=== PATIENT | female | born 1930 | race Caucasian/White ===

== ENCOUNTER → 2018-06-21 | Outpatient (REF) | payer MEDICARE ==
[~2018-06-21] MED LIST: AMLODIPINE5 MG PO; BABY ASPIRIN81 MG PO; CIPROFLOXACIN250 MG PO; CLONIDINE0.1 MG PO; CRESTOR5 MG PO; FLONASE NASAL50 MCG; FLUARIX QUADRIV1 IN1 IM; FLUARIX QUADRIV1 IN2 IM; FLUARIX QUADRIV1 INJ IM; FLULAVAL IM; LEVOTHYROXIN50 MCG PO; LEVOTHYROXIN75 MC1 OR; LEVOTHYROXIN75 MC1 PO; LIPITOR10 MG PO; LIPITOR20 MG PO; NEXIUM40 M1 PO; PROVENTIL0.083 % IN; SYNTHROID75 MCG PO; VENTOLIN HFA IN; ZYRTEC10 MG PO; catapres PO
[2018-06-21 08:16] LABS: HEMATOCRIT 40.9 % (37.0-47.0); HEMOGLOBIN 13.4 g/dl (12.0-16.0); IMMATURE GRANULOCYTES 0.2 % (0.0-5.0); MEAN CELL VOLUME 87.4 fL CALC (80.0-100.0); MEAN CORPUSCULAR HGB 28.6 pG CALC (26.0-32.0); MEAN CORPUSCULAR HGB CONC 32.8 g/L CALC (32.0-36.0); NEUT# 1.6 thou/uL (2.00-7.15); RED BLOOD COUNT 4.68 mill/uL (4.20-5.60); RED CELL DISTRI WIDTH 13.8 % (11.5-15.5)
[2018-06-21 09:08] LABS: ALBUMIN 4.5 g/dL (3.2-5.0); ALKALINE PHOSPHATASE 101 u/l (38-126); ANION GAP 14 (6-22 (CALC)); BILIRUBIN, TOTAL 0.7 mg/dL (0.0-1.4); BUN 13 mg/dL (8-23); BUN/CREATININE RATIO 14 (12-20 (CALC)); CALCULATED LDLCHOLESTEROL 167 mg/dL (62-129 (CALC)); CARBON DIOXIDE 28 mmol/l (22-30); CHLORIDE 103 mmol/l (95-108); CREATININE 0.9 mg/dL (0.5-1.0); GFR 59 ML/MIN (>=60 (CALC)); GFR FOR AFR.AMER. > 60 ML/MIN (>=60 (CALC)); HDL CHOLESTEROL 98 mg/dL (>=40); POTASSIUM 4.5 mmol/l (3.5-5.1); SGOT/AST 35 u/l (9-36); SODIUM 141 mmol/l (137-146); TOTAL CHOLESTEROL 290 mg/dl (0-199); TOTAL PROTEIN 7.9 g/dL (6.3-8.2); TOTAL TRIGLYCERIDES 127 mg/dl (30-149); VLDL CHOLESTROL 25 mg/dl (0-48 (CALC))
== END | disposition home or self-care (01) ==
LOC: LAB 07:33
PROVIDERS: ATTEND Nurse Practitioner Family
DX: E03.9 Hypothyroidism, unspecified (principal); I10 Essential (primary) hypertension

== ENCOUNTER 2019-03-29 09:12 | Observation (INO) | payer MEDICARE ==
[~2019-03-29] VITALS: Ht 167.6 cm; Wt 62.1 kg
[2019-03-29] MEDS ORDERED: MECLIZINE25 MG PO (09:42)
[2019-03-29] MEDS ORDERED: XANAX0.25 MG PO (09:43)
[2019-03-29 09:51] LABS: HEMATOCRIT 40.2 % (37.0-47.0); HEMOGLOBIN 13.1 g/dl (12.0-16.0); MEAN CELL VOLUME 85.2 fL CALC (80.0-100.0); MEAN CORPUSCULAR HGB 27.8 pG CALC (26.0-32.0); MEAN CORPUSCULAR HGB CONC 32.6 g/L CALC (32.0-36.0); NEUT# 2.24 thou/uL (2.00-7.15); RED BLOOD COUNT 4.72 mill/uL (4.20-5.60)
[2019-03-29 10:04] LABS: ALBUMIN 4.7 g/dL (3.2-5.0); ALKALINE PHOSPHATASE 94 u/l (38-126); ANION GAP 13 (6-22 (CALC)); BILIRUBIN, TOTAL 0.5 mg/dL (0.0-1.4); BUN 10 mg/dL (8-23); BUN/CREATININE RATIO 13 (12-20 (CALC)); CARBON DIOXIDE 27 mmol/l (22-30); CHLORIDE 101 mmol/l (95-108); CREATININE 0.8 mg/dL (0.5-1.0); GFR > 60 ML/MIN (>=60 (CALC)); GFR FOR AFR.AMER. > 60 ML/MIN (>=60 (CALC)); POTASSIUM 4.1 mmol/l (3.5-5.1); SGOT/AST 39 u/l (9-36); SODIUM 137 mmol/l (137-146); TOTAL PROTEIN 8.8 g/dL (6.3-8.2)
[2019-03-29 10:22] LABS: URINE BILIRUBIN - DIPSTICK NEGATIVE (NEGATIVE); URINE BLOOD DIPSTICK NEGATIVE (NEGATIVE); URINE COLOR YELLOW; URINE GLUCOSE - DIPSTICK NEGATIVE (NEGATIVE); URINE KETONE NEGATIVE (NEGATIVE); URINE LEUK ESTERASE TRACE (NEGATIVE); URINE NITRITE - DIPSTICK NEGATIVE (Negative); URINE PH 7.5 (4.5-8.0); URINE PROTEIN - DIPSTICK NEGATIVE (NEG-TRACE); URINE UROBILINOGEN - DIPSTICK 0.2 E.U./dL (0.2)
[2019-03-29 12:05] VITALS: BP 135/65
[2019-03-29] MEDS ORDERED: AMLODIPINE BESYL5 MG PO (15:08)
[2019-03-29 16:33] VITALS: BP 121/63
[2019-03-29 19:18] VITALS: BP 111/59
[2019-03-30 00:38] VITALS: BP 122/61
[2019-03-30 04:22] VITALS: BP 106/68
[2019-03-30 05:38] LABS: CHOLESTEROL HDL RATIO 3.5 (<4.4 (CALC))
[2019-03-30 07:38] VITALS: BP 145/71
[2019-03-30 08:06] VITALS: BP 174/66
[2019-03-30 10:34] VITALS: BP 118/66
== END 2019-03-30 12:48 | disposition home or self-care (01) ==
LOC: ED 09:12 → ED-I 10:45 → ED 10:48 → MS2 10:49
PROVIDERS: Emergency Medicine; Nurse Practitioner Family; ADMIT Internal Medicine; ATTEND Internal Medicine
DX: R07.2 Precordial pain (principal); I16.0 Hypertensive urgency; I10 Essential (primary) hypertension; I25.10 Atherosclerotic heart disease of native coronary artery without angina pectoris; E03.9 Hypothyroidism, unspecified; F41.9 Anxiety disorder, unspecified; Z95.5 Presence of coronary angioplasty implant and graft
CPT/HCPCS: G0378

== ENCOUNTER 2020-02-17 08:15 | Emergency (ER) | payer MEDICARE ==
[~2020-02-17] VITALS: Ht 167.6 cm; Wt 72.0 kg
[~2020-02-17 08:15] MED LIST changes: +AMLODIPINE BESYL5 MG PO; +MECLIZINE25 MG PO; +XANAX0.25 MG PO
[2020-02-17 09:26] LABS: HEMATOCRIT 40.1 % (37.0-47.0); HEMOGLOBIN 12.9 g/dl (12.0-16.0); IMMATURE GRANULOCYTES 0.1 % (0.0-5.0); MEAN CELL VOLUME 85.9 fL CALC (80.0-100.0); MEAN CORPUSCULAR HGB 27.6 pG CALC (26.0-32.0); MEAN CORPUSCULAR HGB CONC 32.2 g/dL CAL (32.0-36.0); RED BLOOD COUNT 4.67 mill/uL (4.20-5.60); RED CELL DISTRI WIDTH 13.3 % (11.5-15.5); URINE BILIRUBIN - DIPSTICK NEGATIVE (NEGATIVE); URINE BLOOD DIPSTICK TRACE-INTACT (NEGATIVE); URINE COLOR YELLOW; URINE GLUCOSE - DIPSTICK NEGATIVE (NEGATIVE); URINE KETONE NEGATIVE (NEGATIVE); URINE LEUK ESTERASE TRACE (NEGATIVE); URINE NITRITE - DIPSTICK NEGATIVE (Negative); URINE PH 8.5 (4.5-8.0); URINE PROTEIN - DIPSTICK NEGATIVE (NEG-TRACE); URINE SPECIFIC GRAVITY 1.015; URINE UROBILINOGEN - DIPSTICK 0.2 E.U./dL (0.2)
[2020-02-17 09:51] LABS: ALBUMIN 4.6 g/dL (3.2-5.0); ALKALINE PHOSPHATASE 111 u/l (38-126); AMYLASE 82 u/l (30-110); ANION GAP 13 (6-22 (CALC)); BUN 13 mg/dL (8-23); BUN/CREATININE RATIO 15 (12-20 (CALC)); CARBON DIOXIDE 25 mmol/l (22-30); CHLORIDE 103 mmol/l (95-108); CREATININE 0.9 mg/dL (0.5-1.0); GFR 59 ML/MIN (>=60 (CALC)); GFR FOR AFR.AMER. > 60 ML/MIN (>=60 (CALC)); LIPASE 108 u/l (23-300); POTASSIUM 4.3 mmol/l (3.5-5.1); SGOT/AST 37 u/l (9-36); SODIUM 137 mmol/l (137-146); TOTAL PROTEIN 8.6 g/dL (6.3-8.2)
[2020-02-17 09:53] LABS: BILIRUBIN, TOTAL 0.8 mg/dL (0.0-1.4)
[2020-02-17] MEDS ORDERED: PRILOSEC20 MG/CAP PO (10:10)
[2020-02-17] MEDS ORDERED: CIPROFLOXACN500 MG PO (11:38)
[2020-02-17] MEDS ORDERED: METRONIDAZOL500 MG PO (11:38)
[2020-02-17] MEDS ORDERED: ULTRAM50 MG PO (11:38)
[2020-02-17 12:11] VITALS: BP 176/78
== END 2020-02-17 12:11 | disposition home or self-care (01) ==
LOC: ED 08:15
DX: K57.32 Diverticulitis of large intestine without perforation or abscess without bleeding (principal); I10 Essential (primary) hypertension; F41.9 Anxiety disorder, unspecified; Z87.11 Personal history of peptic ulcer disease
CPT/HCPCS: Q9967; S0164

== ENCOUNTER 2020-09-10 08:12 | Emergency (ER) | payer MEDICARE ==
[~2020-09-10] VITALS: Ht 167.6 cm; Wt 68.0 kg
[~2020-09-10 08:12] MED LIST changes: +CIPROFLOXACN500 MG PO; +METRONIDAZOL500 MG PO; +PRILOSEC20 MG/CAP PO; +ULTRAM50 MG PO
[2020-09-10 09:01] LABS: HEMATOCRIT 39.6 % (37.0-47.0); HEMOGLOBIN 12.9 g/dl (12.0-16.0); IMMATURE GRANULOCYTES 0.4 % (0.0-5.0); MEAN CELL VOLUME 85.3 fL CALC (80.0-100.0); MEAN CORPUSCULAR HGB 27.8 pG CALC (26.0-32.0); MEAN CORPUSCULAR HGB CONC 32.6 g/dL CAL (32.0-36.0); NEUT# 1.59 thou/uL (2.00-7.15); RED BLOOD COUNT 4.64 mill/uL (4.20-5.60); RED CELL DISTRI WIDTH 13.9 % (11.5-15.5)
[2020-09-10 09:17] LABS: ALBUMIN 4.5 g/dL (3.2-5.0); ALKALINE PHOSPHATASE 73 u/l (38-126); AMYLASE 58 u/l (30-110); ANION GAP 13 (6-22 (CALC)); BILIRUBIN, TOTAL 0.7 mg/dL (0.0-1.4); BUN 13 mg/dL (8-23); BUN/CREATININE RATIO 13 (12-20 (CALC)); CARBON DIOXIDE 25 mmol/l (22-30); CHLORIDE 100 mmol/l (95-108); GFR 52 ML/MIN (>=60 (CALC)); GFR FOR AFR.AMER. > 60 ML/MIN (>=60 (CALC)); LIPASE 179 u/l (23-300); POTASSIUM 4.2 mmol/l (3.5-5.1); SGOT/AST 39 u/l (9-36); SODIUM 134 mmol/l (137-146); TOTAL PROTEIN 8.2 g/dL (6.3-8.2)
[2020-09-10 09:28] LABS: MYOGLOBIN 36 ng/mL (0 - 62)
[2020-09-10] MEDS ORDERED: GAS-1 PO (12:07)
[2020-09-10] MEDS ORDERED: PREVACID30 M3 PO (12:07)
[2020-09-10 12:45] LABS: URINE BILIRUBIN - DIPSTICK NEGATIVE (NEGATIVE); URINE BLOOD DIPSTICK NEGATIVE (NEGATIVE); URINE COLOR YELLOW; URINE GLUCOSE - DIPSTICK NEGATIVE (NEGATIVE); URINE KETONE NEGATIVE (NEGATIVE); URINE PROTEIN - DIPSTICK NEGATIVE (NEG-TRACE); URINE UROBILINOGEN - DIPSTICK 0.2 E.U./dL (0.2)
[2020-09-10 12:47] LABS: URINE LEUK ESTERASE MODERATE (NEGATIVE); URINE NITRITE - DIPSTICK NEGATIVE (Negative)
[2020-09-10 12:48] LABS: URINE BACTERIA FEW hpf; URINE EPITHELIAL CELLS FEW EPI/hpf (0-FEW)
[2020-09-10 13:02] VITALS: BP 110/65
[2020-09-11] MEDS ORDERED: CIPROFLOXACN500 MG PO (00:31)
== END 2020-09-10 13:02 | disposition home or self-care (01) ==
LOC: ED 08:12
PROVIDERS: Emergency Medicine
DX: K59.00 Constipation, unspecified (principal); N39.0 Urinary tract infection, site not specified; I10 Essential (primary) hypertension; F41.9 Anxiety disorder, unspecified; Z87.11 Personal history of peptic ulcer disease; Z20.822 Contact with and (suspected) exposure to COVID-19
CPT/HCPCS: Q9967

== ENCOUNTER 2021-03-02 10:21 | Observation (INO) | payer MEDICARE ==
[~2021-03-02] VITALS: Ht 167.6 cm; Wt 56.2 kg
[2021-03-02] VITALS (7 sets, daily range): BP systolic 99–155; BP diastolic 49–86
[~2021-03-02 10:21] MED LIST changes: +GAS-1 PO; +PREVACID30 M3 PO
[2021-03-02 11:05] LABS: HEMATOCRIT 43.7 % (37.0-47.0); HEMOGLOBIN 14.6 g/dl (12.0-16.0); MEAN CELL VOLUME 84.9 fL CALC (80.0-100.0); MEAN CORPUSCULAR HGB 28.3 pG CALC (26.0-32.0); MEAN CORPUSCULAR HGB CONC 33.4 g/dL CAL (32.0-36.0); RED BLOOD COUNT 5.15 mill/uL (4.20-5.60); RED CELL DISTRI WIDTH 13.6 % (11.5-15.5)
[2021-03-02 11:21] LABS: ALBUMIN 4.8 g/dL (3.2-5.0); ALKALINE PHOSPHATASE 99 u/l (38-126); ANION GAP 15 (6-22 (CALC)); BILIRUBIN, TOTAL 0.7 mg/dL (0.0-1.4); BUN 14 mg/dL (8-23); BUN/CREATININE RATIO 15 (12-20 (CALC)); CARBON DIOXIDE 26 mmol/l (22-30); CHLORIDE 101 mmol/l (95-108); CREATININE 0.9 mg/dL (0.5-1.0); GFR 59 ML/MIN (>=60 (CALC)); GFR FOR AFR.AMER. > 60 ML/MIN (>=60 (CALC)); POTASSIUM 4.4 mmol/l (3.5-5.1); SGOT/AST 42 u/l (9-36); SODIUM 137 mmol/l (137-146); TOTAL PROTEIN 8.5 g/dL (6.3-8.2)
[2021-03-02 12:40] LABS: TSH, 3RD GENERATION 0.72 uIU/mL (0.47 - 4.68)
[2021-03-03] VITALS (13 sets, daily range): BP systolic 96–153; BP diastolic 51–78
[2021-03-03 05:32] LABS: HEMATOCRIT 39.9 % (37.0-47.0); HEMOGLOBIN 13.2 g/dl (12.0-16.0); MEAN CELL VOLUME 85.4 fL CALC (80.0-100.0); MEAN CORPUSCULAR HGB 28.3 pG CALC (26.0-32.0); MEAN CORPUSCULAR HGB CONC 33.1 g/dL CAL (32.0-36.0); RED BLOOD COUNT 4.67 mill/uL (4.20-5.60); RED CELL DISTRI WIDTH 13.5 % (11.5-15.5)
[2021-03-03 05:45] LABS: ANION GAP 11 (6-22 (CALC)); BUN 15 mg/dL (8-23); BUN/CREATININE RATIO 19 (12-20 (CALC)); CARBON DIOXIDE 24 mmol/l (22-30); CHLORIDE 106 mmol/l (95-108); CREATININE 0.7 mg/dL (0.5-1.0); GFR > 60 ML/MIN (>=60 (CALC)); GFR FOR AFR.AMER. > 60 ML/MIN (>=60 (CALC)); POTASSIUM 4.2 mmol/l (3.5-5.1); SODIUM 137 mmol/l (137-146)
[2021-03-03] MEDS ORDERED: XARELTO20 MG PO (11:27)
[2021-03-03] MEDS ORDERED: TOPROL XL25 MG PO (11:28)
== END 2021-03-03 13:00 | disposition home or self-care (01) ==
LOC: ED 10:21 → ED-I 11:52 → ED 11:52 → ED-I 11:54 → ICU 12:03 → ED 12:03 → ICU 12:03
PROVIDERS: Family Medicine; ADMIT Hospitalist; ATTEND Hospitalist
DX: I48.91 Unspecified atrial fibrillation (principal); I10 Essential (primary) hypertension; I25.10 Atherosclerotic heart disease of native coronary artery without angina pectoris; E03.9 Hypothyroidism, unspecified; F41.9 Anxiety disorder, unspecified; Z87.11 Personal history of peptic ulcer disease; Z95.5 Presence of coronary angioplasty implant and graft; Z20.822 Contact with and (suspected) exposure to COVID-19
CPT/HCPCS: J1650

== ENCOUNTER 2021-11-18 08:59 | Inpatient (IN) | payer MEDICARE ==
[~2021-11-18] VITALS: Ht 167.6 cm; Wt 56.0 kg
[2021-11-18] VITALS (9 sets, daily range): BP systolic 152–181; BP diastolic 64–87
[~2021-11-18 08:59] MED LIST changes: +TOPROL XL25 MG PO; +XARELTO20 MG PO
--- NOTE | 2021-11-18 09:18 | NUR ---
PATIENT AMBULATED TO ROOM WITH STEADY GAIT IN NAD. PROVIDER NOTIFIED OF PATIENT STATUS.
[2021-11-18 09:57] LABS: HEMATOCRIT 39.7 % (37.0-47.0); HEMOGLOBIN 12.4 g/dl (12.0-16.0); IMMATURE GRANULOCYTES 0.6 % (0.0-5.0); MEAN CELL VOLUME 81.4 fL CALC (80.0-100.0); MEAN CORPUSCULAR HGB 25.4 pG CALC (26.0-32.0); MEAN CORPUSCULAR HGB CONC 31.2 g/dL CAL (32.0-36.0); NEUT# 5.82 thou/uL (2.00-7.15); RED BLOOD COUNT 4.88 mill/uL (4.20-5.60); RED CELL DISTRI WIDTH 16.4 % (11.5-15.5)
[2021-11-18 10:00] LABS: URINE BLOOD DIPSTICK TRACE-INTACT (NEGATIVE); URINE COLOR YELLOW; URINE GLUCOSE - DIPSTICK NEGATIVE (NEGATIVE); URINE KETONE NEGATIVE (NEGATIVE); URINE LEUK ESTERASE NEGATIVE (NEGATIVE); URINE PH 7.5 (4.5-8.0); URINE PROTEIN - DIPSTICK TRACE mg/dL (NEG-TRACE); URINE SPECIFIC GRAVITY 1.015; URINE UROBILINOGEN - DIPSTICK 0.2 E.U./dL (0.2)
[2021-11-18 10:01] LABS: URINE BILIRUBIN - DIPSTICK SMALL (NEGATIVE)
[2021-11-18 10:02] LABS: URINE NITRITE - DIPSTICK NEGATIVE (Negative)
--- NOTE | 2021-11-18 10:09 | NUR ---
Reassessment of patient completed. No distress noted.
[2021-11-18 10:23] LABS: ALBUMIN 4.3 g/dL (3.2-5.0); ALKALINE PHOSPHATASE 94 u/l (38-126); ANION GAP 10 (6-22 (CALC)); BUN 14 mg/dL (8-23); BUN/CREATININE RATIO 14 (12-20 (CALC)); CARBON DIOXIDE 25 mmol/l (22-30); CHLORIDE 102 mmol/l (95-108); GFR FOR AFR.AMER. > 60 ML/MIN (>=60 (CALC)); GFR OTHER RACES 52 ML/MIN (>=60 (CALC)); POTASSIUM 4.2 mmol/l (3.5-5.1); SGOT/AST 37 u/l (9-36); SODIUM 133 mmol/l (137-146)
[2021-11-18 10:25] LABS: BILIRUBIN, TOTAL 0.7 mg/dL (0.0-1.4)
--- NOTE | 2021-11-18 11:05 | NUR ---
LYING IN BED RESTING QUIETLY. DENIES PAIN OR DISCOMFORT. NO NAUSEA, VOMITING, OR DIARRHEA NOTED. Reassessment of patient completed. No distress noted.
--- NOTE | 2021-11-18 12:00 | NUR ---
Reassessment of patient completed. No distress noted. DENIES PAIN OR DISCOMFORT. NO NAUSEA, VOMITING, OR DIARRHEA NOTED. CALL LIGHT IN REACH. WILL CONTINUE WITH PLAN OF CARE.
--- NOTE | 2021-11-18 13:00 | NUR ---
LYING IN BED RESTING QUIETLY. RESPIRATIONS EVEN AND UNLABORED. NO ACUTE DISTRESS NOTED. DENIES NAUSEA, VOMITING, OR DIARRHEA. PATINET TO BE ADMITTED TO HOSPITAL. SHE IS AWARE AND AGREEANLE WITH PLAN OF CARE.Reassessment of patient completed. No distress noted.
[2021-11-18] MEDS ORDERED: ASPIRIN81 MG PO (13:55)
[2021-11-18] MEDS ORDERED: NORVASC5 M1 PO (13:55)
--- NOTE | 2021-11-18 14:39 | NUR ---
Reassessment of patient completed. No distress noted.
--- NOTE | 2021-11-18 14:40 | NUR ---
Reassessment of patient completed. No distress noted.
--- NOTE | 2021-11-18 15:20 | NUR ---
Reassessment of patient completed. No distress noted.
--- NOTE | 2021-11-18 15:38 | NUR ---
PT ARRIVED TO FLOOR VIA WHEELCHAIR ACCOMPAINED BY FAMILY MEMBER. NO APPARENT DISTRESS NOTED. PT AMBULATORY WITH STEADY GAIT FROM WHEELCHAIR TO BED. VSS. PT ORIENTED TO ROOM AND CALL LIGHT SYSTEM. DISCUSSED POC AND SAFETY PRECAUTIONS. CALL LIGHT WITHIN REACH. WILL CONTINUE TO MONITOR.
[2021-11-18] MEDS ORDERED: ELIQUIS5 MG PO (15:40)
[2021-11-18] MEDS ORDERED: LEVOTHYROXIN75 MCG PO (15:41)
--- NOTE | 2021-11-18 20:00 | NUR ---
PT IN BED AWAKE NO DISTRESS NOTED, BED IN LOW POSITION, CALL LIGHT IN REACH
[2021-11-19] VITALS (9 sets, daily range): BP systolic 121–158; BP diastolic 47–67
[2021-11-19 05:01] LABS: MEAN CELL VOLUME 82.6 fL CALC (80.0-100.0); MEAN CORPUSCULAR HGB 25.9 pG CALC (26.0-32.0); MEAN CORPUSCULAR HGB CONC 31.3 g/dL CAL (32.0-36.0); RED BLOOD COUNT 4.02 mill/uL (4.20-5.60); RED CELL DISTRI WIDTH 16.5 % (11.5-15.5)
--- NOTE | 2021-11-19 05:07 | NUR ---
PT IN BED ASLEEP, NO DISTRESS NOTED NO OVERNIGHT EVENTS, BED IN LOW POSITION, CALL LIGHT IN REACH
[2021-11-19 05:12] LABS: HEMATOCRIT 33.2 % (37.0-47.0); HEMOGLOBIN 10.4 g/dl (12.0-16.0)
[2021-11-19 05:16] LABS: ANION GAP 7 (6-22 (CALC)); BUN 8 mg/dL (8-23); BUN/CREATININE RATIO 10 (12-20 (CALC)); CARBON DIOXIDE 26 mmol/l (22-30); CHLORIDE 106 mmol/l (95-108); CREATININE 0.8 mg/dL (0.5-1.0); GFR FOR AFR.AMER. > 60 ML/MIN (>=60 (CALC)); GFR OTHER RACES > 60 ML/MIN (>=60 (CALC)); POTASSIUM 3.5 mmol/l (3.5-5.1); SODIUM 136 mmol/l (137-146)
--- NOTE | 2021-11-19 07:00 | NUR ---
report received from journeyman pipefitterweight shifter pt resting in bed. ivf infusing per emar. breathing even and unlabored. no distress noted. fall/saftey precaution in place. call light within reach.
--- NOTE | 2021-11-19 08:38 | NUR ---
PT RESTING ON SIDE OF THE BED UPON ENTERING ROOM. STATES NO NV/PAIN. IV 20G RFA INFUSING IVF PER EMAR. FLUSHED. ASSESSMENT ALLOWED.PT A&OX3. BOWEL SOUNDS ACTIVE X4. ABD IS SOFT/NON TENDER. LUNG SOUNDS CLEAR. HEART SOUNDS REGULAR. FALL/SAFTEY PRECAUTION IN PLACE. CALL LIGHT WITHIN REACH.
--- NOTE | 2021-11-19 13:09 | NUR ---
PT RESTING IN BED. STATES NO PAIN IN ABD. ABD SOFT. BREATHING EVEN AND UNLABORED. TELE MONITOR IN PLACE, CONTINOUS MONITORING PER ED. STATES NO NEEDS AT THIS TIME. FALL/SAFTEY PRECAUTION IN PLACE. CALL LIGHT WITHIN REACH.
--- NOTE | 2021-11-19 18:33 | NUR ---
NEW IV ESTABLISHED 22G LFA FLUSHED WITH BLOOD RETURN. STATES NO NEEDS AT THIS TIME. FAMILY MEMBER AT BEDSIDE. FALL/SAFTEY PRECAUTION IN PLACE. CALL LIGHT WITHIN REACH
--- NOTE | 2021-11-19 19:30 | NUR ---
PATIENT RESTING IN BED-AWAKE ALERT AND ORIENTEDX3 WITH FAMILY VISITING AT BEDSIDE. NO COMPLAINTS AT THIS TIME. DENIES ANY PAIN, CRAMPING OR NAUSEA AT THIS TIME. TELE MONITOR INPLACE-LAST READING SR-90'S WITH PVC'S. DENIES ANY CHEST PAIN OR PALPATATIONS. IVF PATENT AND INFUSING VIA LEFT FOREARM AT 100CC/HR. TOLERATING CLEAR LIQUIDS OK. ABD IS SOFT WITH ACTIVE BS. LAST BM WAS TODAY-LOOSE AND WATERY PER PATIENT. DENIES ANY DIFFICULTY WITH URINATION.LUNGS ARE CLEAR. NO PERIPHERAL EDEMA NOTED AND PULSES ARE PALPABLE. SAFETY PRECAUTIONS REINFORCED. CALL LIGHT IN REACH. WILL CONT TO MONITOR.
[2021-11-20] VITALS (7 sets, daily range): BP systolic 115–154; BP diastolic 43–73
--- NOTE | 2021-11-20 00:06 | NUR ---
RESTING IN BED WITH EYES CLOSED-RESPS EVEN AND UNLABORED. IVF PATENT AND INFUSING VIA LEFT FOREARM AT 100CC/HR. ZOSYN HUNG ORDERED. CALLLIGHT IN REACH. WILL CONT TO MONITOR.
--- NOTE | 2021-11-20 03:46 | NUR ---
PATIENT RESTING IN BED WITH EYES CLOSED. RESPS ARE EVEN AND UNLABORED. TELE MONITOR IN PLACE. IVF NS PATENT AND INFUSINGAT 100CC/HR VIA LEFT FOREARM SITE. CALL LIGHT IN REACH. WILL CONT TO MONITOR.
[2021-11-20 05:29] LABS: HEMATOCRIT 35.5 % (37.0-47.0); HEMOGLOBIN 10.9 g/dl (12.0-16.0); MEAN CELL VOLUME 84.9 fL CALC (80.0-100.0); MEAN CORPUSCULAR HGB 26.1 pG CALC (26.0-32.0); MEAN CORPUSCULAR HGB CONC 30.7 g/dL CAL (32.0-36.0); RED BLOOD COUNT 4.18 mill/uL (4.20-5.60); RED CELL DISTRI WIDTH 16.5 % (11.5-15.5)
[2021-11-20 05:53] LABS: ANION GAP 8 (6-22 (CALC)); BUN 5 mg/dL (8-23); BUN/CREATININE RATIO 7 (12-20 (CALC)); CARBON DIOXIDE 24 mmol/l (22-30); CHLORIDE 106 mmol/l (95-108); CREATININE 0.6 mg/dL (0.5-1.0); GFR FOR AFR.AMER. > 60 ML/MIN (>=60 (CALC)); GFR OTHER RACES > 60 ML/MIN (>=60 (CALC)); MAGNESIUM 1.9 mg/dL (1.6-2.3); POTASSIUM 2.9 mmol/l (3.5-5.1); SODIUM 134 mmol/l (137-146)
--- NOTE | 2021-11-20 07:43 | NUR ---
PT AMBULATING BACK FROM BATHROOM. A&O X3. NO DISTRESS NOTED. CLEAR BREATH SOUNDS UPON AUSCULTATION. ACTIVE BOWEL SOUNDS X4 QUADRANTS; TOLERATING CLEAR LIQUID DIET WELL, WISHES TO BE ADVANCED. BM REPORTED THIS AM ALONG WITH SOME SLIGHT ABD CRAMPING WHICH HAS SUBSIDED. PT UNABLE TO TAKE ORDERED DOSE OF PO POTASSIUM; MD TO BE NOTIFIED. GROUP PROGRAM MANAGER IN PLACE. IV HEALTHY AND PATENT WITH IVF PER ORDER; K RIDER INITIATED. ASSESSMENT COMPLETED. DISCUSSED POC. CALL LIGHT IN REACH.
--- NOTE | 2021-11-20 10:10 | NUR ---
DR KILPATRICK AT BEDSIDE ASSESSING AND DISCUSSING POC
--- NOTE | 2021-11-20 12:30 | NUR ---
PT SITTING ON THE SIDE OF THE BED WITH FAMILY MEMBER AT SIDE EATING LUNCH. NO NEEDS REPORTED OR DISTRESS NOTED AT THIS TIME. CALL LIGHT WITHIN REACH.
--- NOTE | 2021-11-20 17:27 | NUR ---
PT SITTING IN CHAIR WITH FAMILY MEMBERS AT SIDE. NO NEED REPORTED OR DISTRESS NOTED AT THIS TIME. CALL LIGHT WITHIN REACH.
--- NOTE | 2021-11-20 20:00 | NUR ---
PATIENT SITTING UP IN RECLINER AT THIS TIME-AWAKE ALERT AND ORIENTEDX3. PATIENT STATES THAT SHE HAD SOFT DIET FOR DINNER AND TOLERATED WELL. OCC CRAMPING BUT NO REAL PAIN PER PATIENT. STATES THAT SHE CONT TO HAVE LOOSE BM'S TODAY. DENIES ANY DIFFICULTY WITH URINATION. LUNGS ARE CLEAR. ABD IS SOFT WITH ACTIVE BS. NO PERIPHERAL EDEMA NOTED. PULSE ARE PALPABLE. IVF NS PATENT AND INFUSING VIA LEFT FOREARM SITE AT 100CC/HR. TELE MONITOR IN PLACE-SR-90'S AT THIS TIME. SAFETY PRECAUTIONS REINFORCED. CALL LIGHT IN REACH. WILL CONT TO MONITOR.
--- NOTE | 2021-11-20 23:51 | NUR ---
PATIENT RESTING IN BED-STATES THAT SHE IS NOW HAVING SOME ABD CRAMPING WHEN HAVING LOOSE BM'S. ENCOURAGED PATIENT TO TRY TO STICK WITH THE BLAND SOFT DIET SHE SLOWLY ADDS FOOD TO HER DIET. IVF PATIENT AND INFUSING AT 100CC/HR VIA LEFT FOREARM SITE. ZOSYN HUNG ORDERED. TELE MONITOR IN PLACE. CALL LIGHT IN REACH. WILL CONT TO MONITOR.
[2021-11-21] VITALS (7 sets, daily range): BP systolic 118–159; BP diastolic 50–73
--- NOTE | 2021-11-21 04:01 | NUR ---
PATIENT RESTING IN BED-APPEARS SLEEPING WITH EYES CLOSED. RESPS ARE EVEN AND UNLABORED. IVF PATENT AND INFUSING VIA LEFT FOREARM SITE AT 100CC/HR. TELE MONITOR IN PLACE WITH LAST READING SR-85 WITH PVC'S. CALL LIGHT IN REACH. WILL CONT TO MONITOR.
[2021-11-21 06:25] LABS: ANION GAP 11 (6-22 (CALC)); BUN 6 mg/dL (8-23); BUN/CREATININE RATIO 10 (12-20 (CALC)); CARBON DIOXIDE 20 mmol/l (22-30); CHLORIDE 108 mmol/l (95-108); CREATININE 0.6 mg/dL (0.5-1.0); GFR FOR AFR.AMER. > 60 ML/MIN (>=60 (CALC)); GFR OTHER RACES > 60 ML/MIN (>=60 (CALC)); MAGNESIUM 1.8 mg/dL (1.6-2.3); POTASSIUM 3.2 mmol/l (3.5-5.1); SODIUM 136 mmol/l (137-146)
--- NOTE | 2021-11-21 06:53 | NUR ---
report received from overnight babysitter nurse pt sitting on side of the bed. states having mulitple bm through out night and cramps stated having lasagna for dinner 11/20/21. educated pt on blan food diet. breathign even and unlabored 22g LFA infusing ns per emar. iv patent. fall/saftey precaution in place. call light within reach
--- NOTE | 2021-11-21 07:30 | NUR ---
PT RESTING IN RECLINER. ASSESSMENT ALLOWED. BREATHING EVEN AND UNLABORED. LUNG SOUNDS ARE CLEAR. BOWEL SOUNDS ACTIVE X4. ABD SOFT. PT IS A&OX3. IV PATENT 22G LFA INFUSING NS PER EMAR. TELE MONTIOR IN PLACE, CONTINOUS MONITORING PER ED. FALL/SAFTEY PRECAUTION IN PLACE.CALL LIGHT WITHIN REACH
--- NOTE | 2021-11-21 12:02 | NUR ---
PT EATING LUNCH AT THIS TIME. STATES NO CRAMPING. PT HAS TOLERATED MEALS, NO NAUSEA OR VOMITING. IV PATENT. INFUSING IVF/MEDICATION SEE EMAR. FALL/SAFTEY PRECAUTION IN PLACE. CALL LIGHT WITHIN REACH
--- NOTE | 2021-11-21 12:40 | NUR ---
PT RESTING IN RECLINER. DENIES ANY NAUSEA/VOMITING AT THIS TIME. STATES NO CRAMPING. FALL/SAFTEY PRECAUTION IN PLACE. CALL LIGHT WITHIN REACH. TELE MONITOR IN PLACE, CONTINOUS MONITORIGN PER ED. IV PATENT INFUSING IVF PER EMAR.
--- NOTE | 2021-11-21 18:00 | NUR ---
PT SITTING ON RECLINER. IV COMPROMISED. FAILED ATTEMPT TO ESTABLISH IV. FALL/SAFTEY PRECAUITON IN PLACE. CALL LIGHT WITHIN REACH. REPORTED TO PROFESSOR OF GEOGRAPHY RN. RN AWARE.
--- NOTE | 2021-11-21 20:00 | NUR ---
PATIENT RESTING IN BED. AWAKE ALERT AND ORIENTEDX3. PATIENT STATESTHAT SHE CONT TO HAVE LOOSE BM'S TODAY WITH SOME ABD CRAMPING. NEW IV SITE STARTED TO RIGHT FOREARM-#22 GAUGE WITH GOOD BLOOD RETURN. IVF NS PATENT ANDINFUSING AT KVO RATE. ABD IS SOFT WITH ACTIVE BS. DENIES ANY DIFFICULTY WITH URINATION. TELE MONITOR IN PLACE. NO PERIPHERAL EDEMA NOTED. PULSES ARE PALPABLE. SAFETY PRECAUTIONS REINFORCE. CALL LIGHT IN REACH. WILL CONT TO MONITOR.
--- NOTE | 2021-11-22 00:15 | NUR ---
PATIENT UP TO THE BR AND BACK TO THE BED. IVF PATENT AND INFUSING VIA RIGHT FOREARM SITE AT KVO RATE. ZOSYN HUNG ORDERED. CALL LIGHT IN REACH. WILL CONT TO MONITOR.
[2021-11-22 00:22] VITALS: BP 143/68
[2021-11-22 04:00] VITALS: BP 151/57
--- NOTE | 2021-11-22 04:56 | NUR ---
PATIENT RESTING IN BED-EYES ARE CLOSED AND RESPS ARE EVEN AND UNLABORED. IVF NS PATENT AND INFUSING VIA RIGHT FOREARM SITE AT KVO RATE. TELE MONITOR IN PLACE-LAST READING WAS SR-79. CALL LIGHT IN REACH. WILL CONT TO MONITOR.
[2021-11-22 05:32] LABS: HEMATOCRIT 33.4 % (37.0-47.0); HEMOGLOBIN 10.7 g/dl (12.0-16.0); MEAN CELL VOLUME 80.7 fL CALC (80.0-100.0); MEAN CORPUSCULAR HGB 25.8 pG CALC (26.0-32.0); RED BLOOD COUNT 4.14 mill/uL (4.20-5.60); RED CELL DISTRI WIDTH 16.2 % (11.5-15.5)
[2021-11-22 05:47] LABS: ANION GAP 7 (6-22 (CALC)); BUN 7 mg/dL (8-23); BUN/CREATININE RATIO 11 (12-20 (CALC)); CHLORIDE 103 mmol/l (95-108); CREATININE 0.7 mg/dL (0.5-1.0); GFR FOR AFR.AMER. > 60 ML/MIN (>=60 (CALC)); GFR OTHER RACES > 60 ML/MIN (>=60 (CALC)); MAGNESIUM 1.6 mg/dL (1.6-2.3); SODIUM 134 mmol/l (137-146)
[2021-11-22 05:51] LABS: CARBON DIOXIDE 27 mmol/l (22-30)
[2021-11-22 06:58] VITALS: BP 140/58
--- NOTE | 2021-11-22 07:00 | NUR ---
REPORT RECEIVED FROM WATER FABRICATOR OPERATORINDUSTRIAL ENGINEERING PROFESSOR
--- NOTE | 2021-11-22 08:30 | NUR ---
PT SITTING ON RECLINER WITH RFA 22G INFUSING IVF PER EMAR. MEDICATED SEE EMAR. ASSESSMENT ALLOWED. PT IS A&OX3. ABD IS SOFT/NON TENDER. BOWEL SOUNDS ACTIVE X4. STATES HAVING RESTFUL SLEEP.NO CRAMPING AT THIS TIME. TELE MONITOR IN PLACE. CONTINOUS MONITORING PER ED. STATES NO PAIN. FALL/SAFTEY PRECAUTION IN PLACE. CALL LIGHT WITHIN REACH
[2021-11-22] MEDS ORDERED: ERTAPENEM1 GM IM (10:00)
[2021-11-22 10:35] VITALS: BP 126/53
[2021-11-22] MEDS ORDERED: ERTAPENEM1 GM IV (11:03)
--- NOTE | 2021-11-22 12:54 | NUR ---
FAMILY MEMBER AT BEDSIDE
--- NOTE | 2021-11-22 13:28 | NUR ---
PT RESTIGN IN RECLINER WITH FAMILY MEMBER AT BEDSIDE. MEDICATION INFUSING THROUGH 20RH AND 22LH WITH NO COMPLICATION. STATES NO NEEDS AT THIS TIME. FALL/SAFTEYPRECAUTION IN PLACE. CALL LIGHT WITHIN REACH
--- NOTE | 2021-11-22 14:48 | NUR ---
Discharge instructions given. Patient verbalizes understanding of same. Discharged in stable condition via Wheelchair to Home with staff. All belongings sent with pt.
== END 2021-11-22 14:48 | disposition home or self-care (01) | DRG 392 ==
LOC: ED 08:59 → ED-I 12:50 → ED 13:20 → MS2 13:21
PROVIDERS: Family Medicine; ADMIT Internal Medicine; ATTEND Internal Medicine
DX: K57.32 Diverticulitis of large intestine without perforation or abscess without bleeding (principal); I10 Essential (primary) hypertension; I48.0 Paroxysmal atrial fibrillation; I25.10 Atherosclerotic heart disease of native coronary artery without angina pectoris; E89.0 Postprocedural hypothyroidism; Z95.5 Presence of coronary angioplasty implant and graft; Z90.49 Acquired absence of other specified parts of digestive tract; Z79.01 Long term (current) use of anticoagulants; Z20.822 Contact with and (suspected) exposure to COVID-19
CPT/HCPCS: G0378; J1335; J1650; J3475; Q9967

== ENCOUNTER 2022-03-14 08:24 | Emergency (ER) | payer MEDICARE ==
[2022-03-14] VITALS (12 sets, daily range): BP systolic 170–210; BP diastolic 70–101
[~2022-03-14] VITALS: Ht 167.6 cm; Wt 49.8 kg
[~2022-03-14 08:24] MED LIST changes: +ASPIRIN81 MG PO; +ELIQUIS5 MG PO; +ERTAPENEM1 GM IM; +ERTAPENEM1 GM IV; +LEVOTHYROXIN75 MCG PO; +NORVASC5 M1 PO
[2022-03-14 09:30] LABS: URINE BILIRUBIN - DIPSTICK NEGATIVE (NEGATIVE); URINE BLOOD DIPSTICK NEGATIVE (NEGATIVE); URINE COLOR YELLOW; URINE GLUCOSE - DIPSTICK NEGATIVE (NEGATIVE); URINE KETONE TRACE mg/dL (NEGATIVE); URINE LEUK ESTERASE NEGATIVE (NEGATIVE); URINE PROTEIN - DIPSTICK NEGATIVE (NEG-TRACE); URINE SPECIFIC GRAVITY 1.015; URINE UROBILINOGEN - DIPSTICK 0.2 E.U./dL (0.2)
[2022-03-14 09:33] LABS: URINE NITRITE - DIPSTICK NEGATIVE (Negative)
[2022-03-14 10:00] LABS: HEMATOCRIT 35.4 % (37.0-47.0); HEMOGLOBIN 11.4 g/dl (12.0-16.0); IMMATURE GRANULOCYTES 0.6 % (0.0-5.0); MEAN CELL VOLUME 77.3 fL CALC (80.0-100.0); MEAN CORPUSCULAR HGB 24.9 pG CALC (26.0-32.0); MEAN CORPUSCULAR HGB CONC 32.2 g/dL CAL (32.0-36.0); NEUT# 2.23 thou/uL (2.00-7.15); RED BLOOD COUNT 4.58 mill/uL (4.20-5.60); RED CELL DISTRI WIDTH 15.6 % (11.5-15.5)
[2022-03-14 10:28] LABS: ALBUMIN 4.3 g/dL (3.2-5.0); BILIRUBIN, TOTAL 0.4 mg/dL (0.0-1.4); CREATININE 1.1 mg/dL (0.5-1.0); TOTAL PROTEIN 7.7 g/dL (6.3-8.2)
[2022-03-14 10:30] LABS: POTASSIUM 3.6 mmol/l (3.5-5.1)
[2022-03-14] MEDS ORDERED: HYDROCO/APAP1 TA9 PO (11:27)
== END 2022-03-14 12:02 | disposition home or self-care (01) ==
LOC: ED 08:24
PROVIDERS: Family Medicine
DX: M25.552 Pain in left hip (principal); K56.41 Fecal impaction; I10 Essential (primary) hypertension
CPT/HCPCS: Q9967